=== PATIENT | female | born 1960 | race Caucasian/White ===

== ENCOUNTER 2017-10-21 11:44 | Day surgery (SDC) | payer OTHER ==
[2017-10-21] MEDS ORDERED: MIDAZOLAM 1 MG/ML 2 ML INJ ×2 (15:39)
[2017-10-21] MEDS ORDERED: FENTAnyl 50 MCG/ML VIAL (15:39)
== END 2017-10-21 16:11 | disposition home or self-care (01) ==
LOC: GIL 11:44
DX: Z12.11 Encounter for screening for malignant neoplasm of colon (principal); K64.8 Other hemorrhoids; K64.4 Residual hemorrhoidal skin tags; E11.9 Type 2 diabetes mellitus without complications; I10 Essential (primary) hypertension; I25.10 Atherosclerotic heart disease of native coronary artery without angina pectoris; E03.9 Hypothyroidism, unspecified; Z79.82 Long term (current) use of aspirin; Z79.84 Long term (current) use of oral hypoglycemic drugs
CPT/HCPCS: 45378; 82962